=== PATIENT | female | born 1995 ===

== ENCOUNTER 2018-03-27 15:37 | Emergency (ER) | payer MEDICAID, OTHER ==
[2018-03-27 15:59] VITALS: BMI 24.2
[2018-03-27 16:02] VITALS: BP 107/71; PULSE 77; RESP 20; TEMP 98.4; O2SAT 100
[2018-03-27] MEDS ORDERED: cefTRIAXone (Rocephin) 250 mg Inj IM STA (16:23)
[2018-03-27 16:38] LABS: HCG,QUALITATIVE URINE NEGATIVE (NEGATIVE)
[2018-03-27 16:44] LABS: SQUAMOUS EPITHIAL 2 /hpf (0-5); URINE AMORPHOUS SEDIMENT FEW /ul (<OCC); URINE BACTERIA RARE (<OCC); URINE BILIRUBIN NEGATIVE (NEGATIVE); URINE BLOOD NEGATIVE (NEGATIVE); URINE CLARITY Hazy (Clear); URINE COLOR Yellow (YELLOW); URINE GLUCOSE (UA) NORMAL (Normal); URINE LEUKOCYTE ESTERASE NEG Leu/uL (Negative); URINE PROTEIN NEGATIVE (NEGATIVE); URINE UROBILINOGEN NORMAL mg/dL (0.2-1.0)
--- NOTE | 2018-03-27 18:18 | C.PDOC ---
History Of Present Illness 23 y/o female presents to the ER complaining of pelvic pain and vaginal discharge which has been present for the past 3 days. Patient states that she is sexually active and her partner was recently diagnosed with chlamydia. Denies having dysuria, hematuria, nausea, vomiting, fever, and chills. Chief Complaint (Nursing): Female Genitourinary History Per: Patient History/Exam Limitations: no limitations Onset/Duration Of Symptoms: Days Current Symptoms Are (Timing): Still Present Severity: Moderate Past Medical History Reviewed: Historical Data, Nursing Documentation, Vital Signs Vital Signs: Last Vital Signs Temp 98.4 F 03/27/18 16:00 Pulse 77 03/27/18 16:00 Resp 20 03/27/18 16:00 BP 107/71 03/27/18 16:00 Pulse Ox 100 03/31/18 07:52 - Medical History PMH: No Chronic Diseases Surgical History: No Surg Hx Family History: States: No Known Family Hx - Social History Hx Alcohol Use: No Hx Substance Use: No - Immunization History Hx Tetanus Toxoid Vaccination: No Hx Influenza Vaccination: No Hx Pneumococcal Vaccination: No Review Of Systems Except As Marked, All Systems Reviewed And Found Negative. Constitutional: Negative for: Fever, Chills Gastrointestinal: Negative for: Nausea, Vomiting Genitourinary: Positive for: Vaginal Discharge, Pelvic Pain. Negative for: Dysuria, Hematuria, Vaginal Bleeding Physical Exam - Physical Exam Appears: Non-toxic, No Acute Distress Skin: Normal Color, Warm, Dry Head: Atraumatic, Normacephalic Eye(s): bilateral: Normal Inspection Nose: Normal Oral Mucosa: Moist Neck: Supple Chest: Symmetrical Pelvic: Normal External Exam Neurological/Psych: Oriented x3, Normal Speech ED Course And Treatment O2 Sat by Pulse Oximetry: 100 (RA) Pulse Ox Interpretation: Normal Medical Decision Making Medical Decision Making: Plan: --Labs --Motrin PO --Rocephin IM --Zithromax PO --HCG, Qual. --UA Updates: Patient has been instructed to follow up with clinic. Disposition - Disposition Referrals: [facility] [Outside] [facility] [Outside] [facility] [Outside] Disposition: HOME/ ROUTINE Disposition Time: 17:30 Condition: GOOD Additional Instructions: BARB SEBASTIAN, thank you for letting us take care of you today. Your provider was Jethro Garcia DO and you were treated for PELVIC PAIN. The emergency medical care you received today was directed at your acute symptoms. If you were prescribed any medication, please fill it and take as directed. It may take several days for your symptoms to resolve. Return to the Emergency Department if your symptoms worsen, do not improve, or if you have any other problems. Please contact your doctor or call one of the physicians/clinics you have been referred to that are listed on the Patient Visit Information form that is included in your discharge packet. Bring any paperwork you were given at discharge with you along with any medications you are taking to your follow up visit. Our treatment cannot replace ongoing medical care by a primary care provider outside of the emergency department. Thank you for allowing the [facility] team to be part of your care today. You had an STI test: It will take 48 hours for the results. Please call after 1 week if you have not heard back. Follow up with your primary care doctor or our clinic this week for re- evaluation an further management. Prescriptions: Ibuprofen [Motrin] 600 mg PO Q6 PRN #20 tab PRN Reason: Pain, Moderate (4-7) Instructions: Screening for Sexually Transmitted Infections Forms: [employer] ([employer]) - Clinical Impression Clinical Impression: Screening for STD (sexually transmitted disease) - Scribe Statement The provider has reviewed the documentation as recorded by the Yumiko Amezcua Provider Attestation: All medical record entries made by the Christinibe were at my direction and personally dictated by me. I have reviewed the chart and agree that the record accurately reflects my personal performance of the history, physical exam, medical decision making, and the department course for this patient. I have also personally directed, reviewed, and agree with the discharge instructions and disposition.
== END 2018-03-27 17:08 | disposition home or self-care (01) ==
LOC: C.ER 15:37
DX: Z11.3 Encounter for screening for infections with a predominantly sexual mode of transmission (principal)
CPT/HCPCS: 81001; 84703; 87086; 87491; 87591; 96372; 99284; J0696